=== PATIENT | male | born 1990 | race American Indian/Alaskan Native ===

== ENCOUNTER 2021-01-01 09:39 | Emergency (ER) | payer OTHER ==
[2021-01-01] MEDS ORDERED: ASPIRIN 325 MG TAB PO ONE (10:12)
[2021-01-01 10:20] VITALS: BP 105/59
[2021-01-01 10:54] LABS: Alanine Aminotransferase 30 units/L (7-56); Albumin 2.9 g/dL (3.9-5); BUN/Creatinine Ratio 11; Blood Urea Nitrogen 9 mg/dL (9-20); Calcium 8.6 mg/dL (8.4-10.2); Hemolysis Index 0
--- NOTE | 2021-01-01 10:57 | XRay Report ---
CHEST 2 VIEWS INDICATION / CLINICAL INFORMATION: chest pain. COMPARISON: None available. FINDINGS: SUPPORT DEVICES: None. HEART / MEDIASTINUM: No significant abnormality. LUNGS / PLEURA: No significant pulmonary or pleural abnormality. No pneumothorax. ADDITIONAL FINDINGS: No significant additional findings. IMPRESSION: No significant abnormality Signer Name: Baljinder Weinstein MD FACR Signed: 01/01/2021 10:52 AM Workstation Name: [id number]
[2021-01-01 11:03] LABS: Basophils # (Auto) 0.2 K/mm3 (0.0-0.1); Basophils % (Auto) 1.4 % (0.0-1.8); Eosinophils # (Auto) 1.1 K/mm3 (0.0-0.4); Eosinophils % (Auto) 7.9 % (0.0-4.3); Hematocrit 20.5 % (35.5-45.6); Hemoglobin 6.6 gm/dl (11.8-15.2); Lymphocytes # (Auto) 2.6 K/mm3 (1.2-5.4); Lymphocytes % (Auto) 19.5 % (13.4-35.0); Mean Corpuscular HGB Conc 32 % (32-34); Mean Corpuscular Volume 75 fl (84-94); Monocytes # (Auto) 1.6 K/mm3 (0.0-0.8); Monocytes % (Auto) 11.9 % (0.0-7.3); Platelet Count 706 K/mm3 (140-440); Red Blood Count 2.72 M/mm3 (3.65-5.03); Red Cell Distribution Width 18.1 % (13.2-15.2)
--- NOTE | 2021-01-03 13:37 | Electrocardiograph Report ---
[facility] Test Date: 2021-01-01 Test Time: 10:05:51 Pat Name: DORIS WATTERS Department: Room: Gender: M Payroll Specialist: LYNN : 1990 Requested By: EMANUEL ZAMARRIPA Order Number: [id number] Reading MD: Tina Franks Measurements Intervals [place] Rate: 90 P: 9 MD: 126 QRS: 53 QRSD: 79 T: 28 QT: 349 QTc: 428 Interpretive Statements Sinus rhythm No previous ECG available for comparison Electronically Signed On 01-03-2021 13:36:56 EDT by Tina Franks
== END 2021-01-01 11:17 | disposition left against medical advice (07) ==
LOC: ED 09:39
DX: R07.89 Other chest pain (principal); Z53.21 Procedure and treatment not carried out due to patient leaving prior to being seen by health care provider
CPT/HCPCS: 36415; 71046; 80053; 84484; 85025; 93005